=== PATIENT | male | born 1975 | race Caucasian/White ===

== ENCOUNTER 2019-05-25 20:31 | Emergency (ER) | payer SELFPAY ==
[2019-05-25] MEDS ORDERED: Ketorolac 60 MG/2 ML SDV IM ONE (21:03)
--- NOTE | 2019-05-25 21:05 | EDM.PDOC ---
ED HPI GENERAL MEDICAL PROBLEM - General Chief Complaint: Back Pain or Injury Stated Complaint: LOWER BACK PAIN Time Seen by Provider: 05/25/19 20:55 Source of Information: Reports: Patient, RN Notes Reviewed History Limitations: Reports: No Limitations - History of Present Illness INITIAL COMMENTS - FREE TEXT/NARRATIVE: Instructions unfortunate 44-year-old male presents with department today with complaint of low back pain. Patient reports that he is having spasms " in his lower back that are cramping type pain that are intermittent and they appear with any movement and or ambulation and improved dramatically with rest. Patient has had no fever, no chills, no saddle anesthesia, no loss of bowel or bladder function. Patient reports he was at work he was lifting 100 pound sock at which time he got the pain in his low back Back Pain Score (Numeric/FACES): 10 - Related Data Allergies Allergy/AdvReac Type Severity Reaction Status Date / Time No Known Allergies Allergy Verified 05/25/19 20:49 Home Meds: Home Meds Acetaminophen with Codeine [Tylenol with Codeine #3 Tablet] 1 each PO Q4H PRN # 20 tablet 05/25/19 [Rx] Cyclobenzaprine [Flexeril] 10 mg PO TID PRN #15 tab 05/25/19 [Rx] Past Medical History HEENT History: Reports: None Cardiovascular History: Reports: None Respiratory History: Reports: None Gastrointestinal History: Reports: Other (See Below) Other Gastrointestinal History: spleenectomy Genitourinary History: Reports: None Musculoskeletal History: Reports: None Neurological History: Reports: None Psychiatric History: Reports: None Endocrine/Metabolic History: Reports: None Hematologic History: Reports: None Dermatologic History: Reports: None - Infectious Disease History Infectious Disease History: Reports: Chicken Pox, Hepatitis C Social & Family History - Family History Family Medical History: Noncontributory - Tobacco Use Smoking Status *Q: Current Every Day Smoker Years of Tobacco use: 20 Packs/Tins Daily: 1 - Caffeine Use Caffeine Use: Reports: Coffee ED ROS GENERAL - Review of Systems Review Of Systems: See Below Constitutional: Denies: Fever, Chills Musculoskeletal: Reports: Back Pain ED EXAM,LOWER BACK PAIN/INJURY - Physical Exam Exam: See Below Exam Limited By: No Limitations General Appearance: Alert, WD/WN, Mild Distress Throat/Mouth: Normal Inspection, Normal Lips, Normal Teeth, Normal Gums, Normal Oropharynx, Normal Voice, No Airway Compromise Head: Atraumatic, Normocephalic Respiratory/Chest: No Respiratory Distress Cardiovascular: Normal Peripheral Pulses, Regular Rate, Rhythm, No Edema, No Gallop, No JVD, No Murmur, No Rub GI/Abdominal: Normal Bowel Sounds, Soft, Non-Tender, No Organomegaly, No Distention, No Abnormal Bruit, No Mass Extremities: Other (Mild left paraspinous muscle tenderness L4-L5 label that radiates to left SI joint, negative leg lift bilaterally, no muscle spasm, normal DTRs) Skin Exam: Warm, Dry, No Rash Course - Vital Signs Last Recorded V/S: Last Vital Signs Temp 98.1 F 05/25/19 20:49 Pulse 76 05/25/19 20:49 Resp 16 05/25/19 20:49 BP 146/88 H 05/25/19 20:49 Pulse Ox 98 05/25/19 20:49 - Orders/Labs/Meds Orders: Active Orders 24 hr Category Date Time Status Lumbar Spine Min 4V [CR] Stat Exams 05/25/19 21:03 Taken Meds: Medications Discontinued Medications Generic Name Dose Route Start Last Admin Trade Name Freq PRN Reason Stop Dose Admin Ketorolac Tromethamine 60 mg 05/25/19 21:03 05/25/19 21:10 Toradol IM 05/25/19 21:04 60 mg ONETIME ONE Administration - Re-Assessments/Exams Free Text/Narrative Re-Assessment/Exam: 05/25/19 21:54 Lumbar spine interpreted by me compression fracture of L3 old, no acute disease Departure - Departure Time of Disposition: 21:58 Disposition: Home, Self-Care 01 Clinical Impression: Lumbar strain Qualifiers: Encounter type: initial encounter Qualified Code(s): S39.012A - Strain of muscle, fascia and tendon of lower back, initial encounter - Discharge Information *PRESCRIPTION DRUG MONITORING PROGRAM REVIEWED*: Yes *COPY OF PRESCRIPTION DRUG MONITORING REPORT IN PATIENT REBEKAH: Not Applicable Prescriptions: Acetaminophen with Codeine [Tylenol with Codeine #3 Tablet] 1 each PO Q4H PRN # 20 tablet PRN Reason: Pain Cyclobenzaprine [Flexeril] 10 mg PO TID PRN #15 tab PRN Reason: Pain Instructions: Low Back Sprain Referrals: PCP,None [Primary Care Provider] - Forms: ED Department Discharge Additional Instructions: Home, rest, heating pad 20 minutes at a time 3-4 times a day, avoid bending at the waist, no lifting greater than 10 pounds for one week, return as needed for worsening condition Sepsis Event Note - Evaluation Sepsis Screening Result: No Definite Risk - Focused Exam Vital Signs: Vital Signs Temp Pulse Resp BP Pulse Ox 05/25/19 20:49 98.1 F 76 16 146/88 H 98 Date Exam was Performed: 05/25/19 Time Exam was Performed: 21:53 - My Orders Last 24 Hours: My Active Orders 05/25/19 21:03 Lumbar Spine Min 4V [CR] Stat - Assessment/Plan Last 24 Hours: My Active Orders 05/25/19 21:03 Lumbar Spine Min 4V [CR] Stat
[2019-05-25] MEDS ORDERED: Morphine 4 MG/ML Syringe IM ONE (22:13)
[2019-05-25] MEDS ORDERED: Promethazine 25 MG/ML SDV IM ONE (22:13)
--- NOTE | 2019-05-26 06:55 | CR ---
Lumbar spine: AP, lateral and oblique views of the lumbar spine were obtained. Moderate anterior compression deformity seen of L3. Other vertebral body heights are maintained. Disc spaces are preserved. Pedicles are intact. Transverse and spinous processes are intact. Impression: 1. Moderate anterior wedge deformity of L3. I believe that this is most likely old. No correlating studies available to confirm. 2. Lumbar spine study is otherwise unremarkable. Diagnostic code #3 This report was dictated in [place] Standard Time
== END 2019-05-25 22:35 | disposition home or self-care (01) ==
LOC: JD.ED 20:31
DX: S39.012A Strain of muscle, fascia and tendon of lower back, initial encounter (principal); F17.210 Nicotine dependence, cigarettes, uncomplicated; Z79.899 Other long term (current) drug therapy; X50.0XXA Overexertion from strenuous movement or load, initial encounter
CPT/HCPCS: 72110; 96372; 99283; J1885; J2270; J2550